=== PATIENT | female | born 2000 | race Caucasian/White ===

== ENCOUNTER 2020-05-18 19:15 | Emergency (ER) | payer MEDICAID, SELFPAY ==
[2020-05-18 19:51] VITALS: BP 121/82; PULSE 110; RESP 20; TEMP 36.3; O2SAT 99; BMI 21.7
--- NOTE | 2020-05-18 22:04 | W.ED.GENADLT ---
HPI - General Adult General: Chief complaint: General Medical Stated complaint: allergic reaction Time Seen by Provider: 05/18/20 21:58 History of Present Illness: HPI narrative: Patient complains of bladder infection start taking Pyridium yesterday developed hives about 3:00 today complaint: Hives Onset (ago): hour(s) Associated symptoms: Deny chest pain, dyspnea, headache(s), nausea, rash or vomiting Review of Systems Const: Denies: fever(s), chills or body aches Eyes: Denies: change in vision or blurry vision ENMT: Denies: throat pain or nasal congestion Card: Denies: chest pain or dyspnea on exertion Resp: Denies: dyspnea, productive cough or non-productive cough GI: Denies: abdominal pain, nausea or vomiting : Reports: urinary frequency Musc: Denies: extremity pain Skin/Breast: Reports: pruritus and other (Hives); Denies: rash Neuro: Denies: headache(s) Psych: Denies: anxiety or depression Matt/Lymph: Denies: easy bruising [facility] Female Reproductive History: Date of last menstrual period: 04/07/20 Physical Exam Const: COMMON NORMALS: no acute distress, average body habitus and patient oriented x3 HENMT: COMMON NORMALS: normocephalic HEAD & SCALP: normal to inspection and normocephalic FACE & SINUS: normal facial exam Eye: COMMON NORMALS: conjunctivae normal GENERAL EYE: appearance normal, both eyes and all related structures CONJUNCTIVA: Yes conjunctivae normal Neck/C-Spine: COMMON NORMALS: no JVD Chest: COMMONS NORMALS: normal inspection of the chest Resp: COMMON NORMALS: normal respiratory effort and clear to auscultation bilaterally AUSCULTATION: clear to auscultation bilaterally Cardio: COMMON NORMALS: no JVD and regular rhythm RATE: tachycardic RHYTHM: regular rhythm GI: COMMON NORMALS: Normal to inspection, nondistended, normoactive bowel sounds present Extremity: COMMON NORMALS: normal to inspection and full ROM Neuro: COMMON NORMALS: patient oriented x3 Skin: OTHER: Has scattered macules resembling hives lower and upper extremities abdomen. Course Vital Signs: Vital signs: Vital Signs Temperature 97.3 F L 05/18/20 19:51 Pulse Rate 110 H 05/18/20 19:51 Respiratory Rate 20 H 05/18/20 19:51 Blood Pressure 121/82 05/18/20 19:51 Pulse Oximetry 99 05/18/20 19:51 Discharge Plan Discharge Patient Disposition: Home Clinical Impression: Urticaria Condition: Stable Prescriptions: New Medrol (Alin) 4 mg tablets,dose pack See Rx Instructions .ROUTE .COMPLEX Qty: 21 RF: 0 Cipro 500 mg tablet 500 mg PO BID Qty: 10 RF: 0 Discharge Orders: Discharge Order (Routine); Ordered 05/18/20 Ordered By: Joon Bajwa Discharge Diet: Usual diet Discharge Activity: Resume usual activity Patient Instructions: Urticaria (ED) Activity Restrictions/Additional Instructions: Follow-up with medical provider as directed. Take medications as prescribed. Return to the ER or your medical provider if condition worsens. Please read and understand discharge instructions. If any questions ask please. Do not take anymore Pyridium follow-up your family medical provider if no significant provement. Coding Level of Care Code ED Ordnance Technician for Hai Cody
[2020-05-18] MEDS: ciprofloxacin 500 mg Tablet PO (22:06)
[2020-05-18] MEDS: predniSONE 20 mg Tablet 60 MG PO (22:07)
[2020-05-18] MEDS: diphenhydrAMINE 50 mg/mL SDV 1mL IM (22:08)
[2020-05-18 22:16] VITALS: PULSE 68; RESP 18; O2SAT 99
== END 2020-05-18 22:16 | disposition home or self-care (01) ==
PROVIDERS: Emergency Provider Nurse Practitioner Family
DX: L50.9 Urticaria, unspecified (principal)
CPT/HCPCS: 12345; 96372; 99282; 99283; J1200; J7512

== ENCOUNTER 2020-07-24 18:37 | Emergency (ER) | payer MEDICAID, SELFPAY ==
--- NOTE | 2020-07-24 18:38 | US_ITS ---
WS: [id number] EARLY OBSTETRICAL ULTRASOUND (<14 WEEKS). HISTORY: Transvaginal bleeding. COMPARISON: None available. Single intrauterine gestational sac is identified. Cardiac activity at 153 BPM. [employer]-rump length lola sures 1.0 cm which corresponds to a gestation of 7w0d. Normal-appearing yolk sac and amnion demonstra komal. No subchorionic hemorrhage. No free fluid. Minimally thick wall cyst in the RIGHT ovary measures 2.8 x 2.7 cm. Normal vascularity within the adj acent ovary. The LEFT ovary is normal size. US/US OB <= 14 weeks fetus [id number] IMPRESSION: 1. Single intrauterine gestation of 7 weeks 0 days and EDC of 03/12/2021. 2. RIGHT corpus luteum cyst.
[2020-07-24 18:41] VITALS: BP 125/81; PULSE 107; RESP 16; TEMP 36.8; O2SAT 100; BMI 23.4
--- NOTE | 2020-07-24 18:53 | ED_ITS ---
HPI - Female Genitourinary General: Chief complaint: Vaginal Bleeding Stated complaint: possible miscarriage Time Seen by Provider: 07/24/20 18:45 History of Present Illness: HPI Narrative: Patient says he is about 13 weeks and arrived via ambulance because she felt dizzy once the bleeding started bleeding she said lasted about 20 minutes it was heavy and red and then bleeding is stopped and she is felt fine since then does have some low back pain presently denies any illness fever chills nausea vomiting. Has had 2 miscarriages in the last 2 years 1 para 3 MD elicited complaint: vaginal bleeding Pertinent past history: prior miscarriages Onset (ago): minute(s) Location of symptoms: vaginal Severity: mild Severity scale (1-10): 2 Consistency: now resolved Vaginal discharge: none Vaginal bleeding: moderate and bright red Exacerbating factors: none Relieving factors: none Associated symptoms: Reports no associated symptoms; Deny abdominal pain, headache(s) or nausea Treatment prior to arrival: none Sexual activity: Yes Patient : Yes Date of Last Menstrual Period: 04/20/20 Review of Systems Const: Denies: fever(s), chills or body aches Eyes: Denies: change in vision or blurry vision ENMT: Denies: throat pain or nasal congestion Card: Denies: chest pain or dyspnea on exertion Resp: Denies: dyspnea, productive cough or non-productive cough GI: Denies: abdominal pain, nausea or vomiting Musc: Denies: extremity pain Skin/Breast: Denies: rash Neuro: Denies: headache(s) Psych: Denies: anxiety or depression Matt/Lymph: Denies: easy bruising [facility] ED Female Reproductive History: Date of last menstrual period: 04/20/20 Physical Exam Const: COMMON NORMALS: no acute distress, average body habitus and patient oriented x3 HENMT: COMMON NORMALS: normocephalic HEAD & SCALP: normal to inspection and normocephalic FACE & SINUS: normal facial exam Eye: COMMON NORMALS: conjunctivae normal GENERAL EYE: appearance normal, both eyes and all related structures CONJUNCTIVA: Yes conjunctivae normal Neck/C-Spine: COMMON NORMALS: no JVD Chest: COMMONS NORMALS: normal inspection of the chest Resp: COMMON NORMALS: normal respiratory effort and clear to auscultation bilaterally AUSCULTATION: clear to auscultation bilaterally Cardio: COMMON NORMALS: no JVD, regular rate and regular rhythm RATE: regular rate RHYTHM: regular rhythm GI: COMMON NORMALS: Normal to inspection, nondistended, normoactive bowel sounds present Extremity: COMMON NORMALS: normal to inspection and full ROM Neuro: COMMON NORMALS: patient oriented x3 Course Vital Signs: Vital signs: Vital Signs Temperature 98.2 F 07/24/20 18:41 Pulse Rate 90 07/24/20 20:32 Respiratory Rate 18 07/24/20 20:32 Blood Pressure 113/66 07/24/20 20:32 Pulse Oximetry 98 07/24/20 20:32 MDM - Female MDM Narrative: Medical decision making narrative: Discussed ultrasound results which show no problems. Discussed what to watch for and what to do if bleeding happens again. Follow-up with the OB doctor first next week Lab Data: Labs: Lab Results 07/24/20 07/24/20 07/24/20 Range/Units 19:25 19:34 19:34 WBC 7.4 (4.5-13.0) 10^3/ uL RBC 5.30 (4.1-5.3) 10^6/u L Hgb 12.8 (11.5-15.3) g/dL Hct 41.0 (37.0-47.0) % MCV 77.4 L (81-99) fL MCH 24.2 L (28.0-34.0) pg MCHC 31.2 (30.0-36.0) g/dL RDW 14.8 (12.1-15.1) % Plt Count 290 (130-400) 10^3/c mm MPV 10.1 (7.4-10.4) fL Neut % (Auto) 62.9 % Lymph % (Auto) 27.5 % [place] % (Auto) 5.0 % Eos % (Auto) 3.8 % Baso % (Auto) 0.7 % Neut # (Auto) 4.62 (1.8-8.0) 10^3/u L Lymph # (Auto) 2.0 (1.5-6.5) 10^3/u L [place] # (Auto) 0.4 (0.2-0.9) 10^3/u L Eos # (Auto) 0.3 (0.0-0.8) 10^3/u L Baso # (Auto) 0.1 (0.0-0.1) 10^3/u L Nucleated RBC % (a uto) 0 % Nucleated RBCs # 0.0 /100WBC Sodium 136 (136-145) mmol/L Potassium 4.1 (3.5-5.1) mmol/L Chloride 101 (98-107) mmol/L Carbon Dioxide 24 (22-29) mmol/L Anion Gap 15.1 (5-19) BUN 10 (6-20) mg/dL Creatinine 0.4 L (0.5-0.9) mg/dL GFR Calculation 205.6 H (90-130) mL/min Glucose 88 (65-115) mg/dL Calculated Osmolal ity 280 L (285-295) mOsm/k g Calcium 9.8 (8.5-10.5) mg/dL Total Bilirubin 0.2 (0.15-1.2) mg/dL AST 17 (0-32) U/L ALT 15 (0-33) U/L Alkaline Phosphata se 62 (35-105) IU/L Total Protein 6.7 (6.6-8.7) g/dL Albumin 4.3 (3.5-5.2) g/dL Globulin 2.4 (1.3-4.6) g/dL Lipase 26 (13-60) U/L Ser , [place]nt 16306.00 mIU/mL Urine Color Yellow (Yellow) Urine Appearance Clear (CLEAR) Urine pH 7.0 (5-7) Ur Specific Gravit y 1.015 (1.005-1.030) Urine Protein Neg (Negative) Urine Glucose (UA) Norm (Normal) Urine Ketones Negative (Negative) Urine Blood Neg (Negative) Urine Nitrate Negative (Negative) Urine Bilirubin Neg (Negative) Urine Urobilinogen Norm (Negative) mg/dL Ur Leukocyte Lavinia ase Negative (Negative) Discharge Plan Discharge Patient Disposition: Home Clinical Impression: Threatened Condition: Stable Prescriptions: No Action EpiPen 0.3 mg/0.3 mL Auto-Injector See Rx Instructions .ROUTE .COMPLEX RF: 0 28 mg iron- 800 mcg Tablet 1 tab PO DAILY RF: 0 Discharge Orders: Discharge Order (Routine); Ordered 07/24/20 Ordered By: Joon Bajwa Discharge Diet: Usual diet Discharge Activity: Resume usual activity Patient Instructions: Threatened Miscarriage (ED) Activity Restrictions/Additional Instructions: Drink plenty of fluids follow-up your OB doctor first next week continue present vitamins. Discharge Date/Time: 07/24/20 20:34 Coding Level of Care Code ED Nut Packer 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
[2020-07-24 18:59] VITALS: BP 127/80; PULSE 99; RESP 18; O2SAT 100
[2020-07-24 19:28] LABS: Add Urine Microscopic? NO
[2020-07-24 20:00] LABS: Bilirubin Urine Neg (Negative); Blood Urine Neg (Negative); Glucose Urine UA Norm (Normal); Ketones Urine Negative (Negative); Leukocyte Esterase Urine Negative (Negative); Nitrate Urine Negative (Negative); Protein Urine Neg (Negative); Specific Gravity, Urine 1.015 (1.005-1.030); Urine Appearance Clear (CLEAR); Urine Color Yellow (Yellow); Urobilinogen Urine Norm (Negative)
[2020-07-24 20:09] LABS: Basophils # 0.1 10^3/uL (0.0-0.1); Basophils % 0.7 %; Eosinophils # 0.3 10^3/uL (0.0-0.8); Eosinophils % 3.8 %; Hemoglobin 12.8 g/dL (11.5-15.3); Lymphocytes % 27.5 %; Mean Corpuscular HGB Conc 31.2 g/dL (30.0-36.0); Mean Corpuscular Hemoglobin 24.2 pg (28.0-34.0); Mean Corpuscular Volume 77.4 fL (81-99); Mean Platelet Volume 10.1 fL (7.4-10.4); Monocytes # 0.4 10^3/uL (0.2-0.9); Neutrophils # 4.62 10^3/uL (1.8-8.0); Neutrophils % 62.9 %; Nucleated Red Blood Cells % 0 %; Platelet Count 290 10^3/cmm (130-400); Red Cell Distribution Width 14.8 % (12.1-15.1); White Blood Count 7.4 10^3/uL (4.5-13.0)
[2020-07-24 20:24] VITALS: BP 106/71; PULSE 100; RESP 18; O2SAT 98
[2020-07-24 20:32] VITALS: BP 113/66; PULSE 90; RESP 18; O2SAT 98
[2020-07-24 20:34] LABS: Alanine Aminotransferase 15 U/L (0-33); Albumin Level 4.3 g/dL (3.5-5.2); Alkaline Phosphatase 62 IU/L (35-105); Aspartate Amino Transferase 17 U/L (0-32); Blood Urea Nitrogen 10 mg/dL (6-20); Calcium 9.8 mg/dL (8.5-10.5); Carbon Dioxide 24 mmol/L (22-29); Chloride 101 mmol/L (98-107); Globulin 2.4 g/dL (1.3-4.6); Glomerular Filtration Rate 205.6 mL/min (90-130); Glucose 88 mg/dL (65-115); Lipase 26 U/L (13-60); Osmolality Calculated 280 mOsm/kg (285-295); Sodium 136 mmol/L (136-145); Total Bilirubin 0.2 mg/dL (0.15-1.2); Total Protein 6.7 g/dL (6.6-8.7)
[2020-07-24 20:38] LABS: Anion Gap 15.1 (5-19); Potassium 4.1 mmol/L (3.5-5.1)
== END 2020-07-24 20:34 | disposition home or self-care (01) ==
PROVIDERS: Emergency Provider Nurse Practitioner Family
DX: O20.0 Threatened abortion (principal); Z3A.13 13 weeks gestation of pregnancy
CPT/HCPCS: 12345; 76801; 80053; 81003; 83690; 84702; 85025; 99282; 99283

== ENCOUNTER 2020-10-17 19:06 | Outpatient (CLI) | payer MEDICAID, SELFPAY ==
[2020-10-17] VITALS (15 sets, daily range): BP systolic 114; BP diastolic 59; PULSE 83–125; RESP 16; TEMP 35.9; O2SAT 91–100; BMI 26.0
[2020-10-17] MEDS: terbutaline 1 mg/mL INJ 0.25 MG SUBCUT ×2 (20:10→21:17)
[2020-10-17] MEDS: acetaminophen 500 mg Tablet 1000 MG PO (21:17)
== END 2020-10-17 21:34 | disposition home or self-care (01) ==
LOC: OPOB 19:06 → OBGYN 19:18
PROVIDERS: Visit Provider Family Medicine
DX: O36.8190 Decreased fetal movements, unspecified trimester, not applicable or unspecified (principal); Z3A.00 Weeks of gestation of pregnancy not specified
CPT/HCPCS: 96372; 99211; J3105

== ENCOUNTER 2020-10-18 11:41 | Outpatient (CLI) | payer MEDICAID, SELFPAY ==
[2020-10-18] VITALS (18 sets, daily range): BP systolic 106–137; BP diastolic 58–73; PULSE 95–148; RESP 17; TEMP 36.7; O2SAT 94–100; BMI 25.9
--- NOTE | 2020-10-18 12:17 | USR_ITS ---
PROCEDURE INFORMATION: Exam: US , Transvaginal Exam date and time: 10/18/2020 12:35 PM Age: 19 years old Clinical indication: Lmp or gestational age (in weeks): 20 wks 2 days; Other: Contractions; TECHNIQUE: Imaging protocol: Real-time transvaginal obstetrical ultrasound of the maternal pelvis and a first trimester with image documentation. Transvaginal imaging was used for better evaluation of the fetus, adnexa, and/or cervix. COMPARISON: US OB >= 14 weeks fetus [id number] 10/14/2020 11:43 AM FINDINGS: Gestation: There is a single intrauterine viable . heart rate: Heart rate equals 153 BPM. Placenta: There is a low lying anterior grade 1 placenta but no evidence of placenta previa. Amniotic fluid: Amniotic fluid volume is normal. MATERNAL: Cervix: The cervix is 4.64 cm in length. US/US OB transvaginal [id number] IMPRESSION: 1. Single viable intrauterine . 2. Low-lying anterior placenta. 3. The cervical length equals 4.64 cm.
[2020-10-18] MEDS: terbutaline 1 mg/mL INJ 0.25 MG SUBCUT (12:28)
[2020-10-18] MEDS: lactated ringers 1,000 ML 999 ML IV (12:47)
[2020-10-18] MEDS: NIFEdipine ER (24 hr) 30 mg Tablet PO (13:36)
== END 2020-10-18 13:43 | disposition home or self-care (01) ==
LOC: OPOB 11:45 → OBGYN 11:45
PROVIDERS: Visit Provider Family Medicine
DX: O26.899 Other specified pregnancy related conditions, unspecified trimester (principal); Z3A.00 Weeks of gestation of pregnancy not specified; R10.9 Unspecified abdominal pain
CPT/HCPCS: 76817; 96361; 96372; 99211; J3105

== ENCOUNTER 2020-12-14 18:35 | Outpatient (CLI) | payer MEDICAID, SELFPAY ==
[2020-12-14 18:47] VITALS: BP 137/85; PULSE 117
[2020-12-14 19:00] VITALS: BMI 29.7
[2020-12-14 19:05] VITALS: BP 123/72; PULSE 116
[2020-12-14 19:18] VITALS: RESP 18
[2020-12-14 19:20] VITALS: BP 129/74; PULSE 111
[2020-12-14] MEDS: terbutaline 1 mg/mL INJ 0.25 MG SUBCUT ×2 (19:28→20:04)
[2020-12-14] MEDS: NIFEdipine ER (24 hr) 30 mg Tablet PO (20:04)
[2020-12-14 20:42] VITALS: BP 118/77; PULSE 131; TEMP 36.3
[2020-12-14 20:45] VITALS: BP 118/77; PULSE 131; TEMP 36.3
== END 2020-12-14 20:45 | disposition home or self-care (01) ==
LOC: OPOB 18:36 → OBGYN 18:37
PROVIDERS: Visit Provider Family Medicine
DX: O26.899 Other specified pregnancy related conditions, unspecified trimester (principal); Z3A.00 Weeks of gestation of pregnancy not specified; R10.9 Unspecified abdominal pain
CPT/HCPCS: 59025; 96372; 99211; J3105

== ENCOUNTER 2020-12-15 12:20 | Outpatient (CLI) | payer MEDICAID, SELFPAY ==
[2020-12-15 12:45] VITALS: BMI 30.4
[2020-12-15] MEDS: NIFEdipine ER (24 hr) 30 mg Tablet PO (13:04)
== END 2020-12-15 13:05 | disposition home or self-care (01) ==
LOC: OPOB 12:28 → OBGYN 14:41
PROVIDERS: Visit Provider Family Medicine
DX: O26.899 Other specified pregnancy related conditions, unspecified trimester (principal); Z3A.00 Weeks of gestation of pregnancy not specified; R10.9 Unspecified abdominal pain
CPT/HCPCS: 99211

== ENCOUNTER 2021-01-07 17:50 | Outpatient (CLI) | payer MEDICAID, SELFPAY ==
[2021-01-07] VITALS (17 sets, daily range): BP systolic 134–148; BP diastolic 71–90; PULSE 86–132; RESP 16; O2SAT 97–100; BMI 28.9
[2021-01-07] MEDS: terbutaline 1 mg/mL INJ 0.25 MG SUBCUT (18:32)
--- NOTE | 2021-01-07 19:10 | PC.NURSE ---
Patient denies any current pain but states that the last contraction was a big one When asked to quantify the pain of the last contraction on a 1-10 pain rating scale patient responds, it was probably a 7.
== END 2021-01-07 19:33 | disposition home or self-care (01) ==
LOC: OPOB 17:53 → OBGYN 19:19
PROVIDERS: Visit Provider Family Medicine
DX: O26.899 Other specified pregnancy related conditions, unspecified trimester (principal); Z3A.00 Weeks of gestation of pregnancy not specified; Z91.81 History of falling
CPT/HCPCS: 59025; 96372; 99211; J3105

== ENCOUNTER 2021-01-20 18:16 | Outpatient (CLI) | payer MEDICAID, SELFPAY ==
[2021-01-20 18:32] VITALS: RESP 18
[2021-01-20 18:33] VITALS: BP 136/99; PULSE 121
[2021-01-20 18:48] VITALS: BP 132/90; PULSE 121
[2021-01-20 18:56] VITALS: TEMP 36.3
[2021-01-20 19:03] VITALS: BP 123/71; PULSE 101
[2021-01-20 19:14] VITALS: BP 123/71; PULSE 101; RESP 16; TEMP 36.3
[2021-01-20 19:22] VITALS: BMI 31.8
--- NOTE | 2021-02-12 15:12 | PC.NURSE ---
Outpatient in a bed order placed for patient visit.
== END 2021-01-20 19:37 | disposition home or self-care (01) ==
LOC: OPOB 18:19 → OBGYN 18:20
PROVIDERS: Visit Provider Family Medicine
DX: O26.899 Other specified pregnancy related conditions, unspecified trimester (principal); Z3A.00 Weeks of gestation of pregnancy not specified; R10.9 Unspecified abdominal pain
CPT/HCPCS: 59025; 83986; 99211

== ENCOUNTER 2021-01-31 03:16 | Emergency (ER) | payer MEDICAID, SELFPAY ==
[2021-01-31 03:19] VITALS: BP 130/89; PULSE 103; RESP 18; TEMP 36.6; O2SAT 100; BMI 31.6
--- NOTE | 2021-01-31 03:59 | W.ED.URI ---
HPI - URI/Sore Throat General: Chief Complaint: Upper Respiratory Infection Stated Complaint: chest pressure Time Seen by Provider: 01/31/21 03:31 History of Present Illness: HPI Narrative: 20-year-old female with a history of cough, congestion, chest tightness for the last 3 days. No history of fever. No known exposure to COVID-19 or any other illness. She is a [id number] mom. She is 37 weeks . No loss of fluid or bleeding. She is still feeling her baby move. She notes that her symptoms started with a sore throat 3 days ago MD elicited complaint: cough, sore throat, rhinorrhea and nasal congestion Pertinent past history: other Onset (ago): day(s) (3) Consistency: intermittent and progressively worsening Severity: moderate Description of mucous: clear Able to tolerate fluids by mouth: Yes Exacerbating factors: nothing Relieving factors: nothing Associated symptoms: Reports chest pain, congestion, cough, nasal congestion, nausea and rhinorrhea; Deny abdominal pain, chills, diarrhea, fever(s), headache(s), myalgias, rash or vomiting Review of Systems Const: Denies: fever(s) or chills ENMT: Reports: nasal congestion Card: Reports: chest pain GI: Reports: nausea; Denies: abdominal pain, vomiting or diarrhea Neuro: Denies: headache(s) [facility] Female Reproductive History: Date of last menstrual period: 04/20/20 Physical Exam Const: GENERAL APPEARANCE: well developed ORIENTATION/CONSCIOUSNESS: Yes oriented to person, Yes oriented to place and Yes oriented to time HENMT: COMMON NORMALS: normocephalic, external ears normal and Normal external nose present HEAD & SCALP: normocephalic; no scalp tenderness FACE & SINUS: normal facial exam NOSE: Normal external nose present and Nasal discharge present clear EXTERNAL EAR: Yes external ears normal MOUTH: tongue normal TEETH & GINGIVA: no abnormal tooth and associated gingiva THROAT: posterior oropharynx normal; no peritonsillar mass Eye: COMMON NORMALS: Equal, round and reactive pupils present, EOMs intact bilaterally and conjunctivae normal EYELID: eyelids normal CONJUNCTIVA: Yes conjunctivae normal PUPIL: Yes Equal, round and reactive pupils present Neck/C-Spine: COMMON NORMALS: full ROM GENERAL: No tracheal deviation CERVICAL SPINE: Yes normal cervical lordosis and No Cervical spine tenderness Chest: COMMONS NORMALS: normal inspection of the chest CHEST: No tenderness Resp: COMMON NORMALS: clear to auscultation bilaterally EFFORT & INSPECTION: No tachypneic, No respiratory distress, No retractions, No uses accessory muscles and No tracheal deviation AUSCULTATION: clear to auscultation bilaterally, no rhonchi, no wheezes, lung sounds not diminished and other (Not wheezing but mildly tight on right) Cardio: COMMON NORMALS: regular rate and regular rhythm RATE: regular rate RHYTHM: regular rhythm HEART SOUNDS: no murmurs PERIPHERAL PULSES: radial pulses present GI: INSPECTION: No abdominal distension AUSCULTATION: No Hyperactive bowel sounds present and No Hypoactive bowel sounds present PALPATION: No Guarding due to palpation present (GI) and No Rigid due to palpation PERCUSSION: no dullness to percussion and no tympanic to percussion Neuro: SENSORIUM/ORIENTATION: Yes oriented to person, Yes oriented to place and Yes oriented to time Psych: COMMON NORMALS: mental status grossly normal Skin: COMMON NORMALS: no rashes or lesions noted GENERAL SKIN EXAM: no rashes or lesions noted Course Vital Signs: Vital signs: Vital Signs Temperature 97.8 F 01/31/21 03:19 Pulse Rate 103 H 01/31/21 03:19 Respiratory Rate 18 01/31/21 03:19 Blood Pressure 130/89 01/31/21 03:19 Pulse Oximetry 100 01/31/21 03:19 MDM - URI/Sore Throat MDM Narrative: Medical decision making narrative: 20-year-old female at 37 weeks. She is having some upper respiratory symptoms. She also is having some chest pressure with her cough and pain with deep breaths. She has some mild vesicular sounds on her right lung base on auscultation. She will be placed on antibiotics given her late , given dexamethasone here, one-time dose, and put on inhaler Discharge Plan Discharge Patient Disposition: Home Clinical Impression: Bronchitis Condition: Stable Prescriptions: New azithromycin 250 mg tablet 250 mg PO DAILY 5 Days Qty: 6 RF: 0 No Action epinephrine [EpiPen] 0.3 mg/0.3 mL Auto-Injector See Rx Instructions .ROUTE .COMPLEX RF: 0 PNV cmb#[id number]-ferrous fumarate-FA [] 28 mg iron- 800 mcg Tablet 1 tab PO DAILY RF: 0 Discharge Orders: Discharge ED (Routine); Ordered 01/31/21 Ordered By: Case Duval Referrals: Flaca Ruelas MD [Physician] - 1-3 days Discharge Diet: Advance as tolerated Discharge Activity: Increase activity as tolerated Patient Instructions: Acute Bronchitis (ED) Activity Restrictions/Additional Instructions: Return for fever greater than 100, shortness of breath or worsening chest pain despite treatment, decrease in movement, any other concerning symptoms. Coding Level of Care Code ED Plating Technician for Hai Cody
[2021-01-31] MEDS: dexamethasone 4 mg Tablet 8 MG PO (04:05)
[2021-01-31] MEDS: azithromycin 250 mg Tablet 500 MG PO (04:05)
[2021-01-31 04:09] VITALS: PULSE 76; RESP 18; O2SAT 98
[2021-01-31] MEDS: albuterol 8 gm MDI 2 PUFF INHALATION (04:09)
[2021-01-31 04:13] VITALS: PULSE 77; RESP 18; O2SAT 97
[2021-01-31 04:25] VITALS: BP 130/89; PULSE 103; RESP 18; O2SAT 98
== END 2021-01-31 04:00 | disposition home or self-care (01) ==
PROVIDERS: Emergency Provider Emergency Medicine
DX: J40 Bronchitis, not specified as acute or chronic (principal)
CPT/HCPCS: 94640; 99283; J3535; J8540; Q0144

== ENCOUNTER 2021-01-31 13:10 | Outpatient (CLI) | payer MEDICAID, SELFPAY ==
[2021-01-31] VITALS (8 sets, daily range): BP systolic 121–123; BP diastolic 82–85; PULSE 129–148; RESP 18; TEMP 36.2; O2SAT 97–98; BMI 27.6
== END 2021-01-31 14:01 | disposition home or self-care (01) ==
LOC: OPOB 13:15 → OBGYN 13:16
PROVIDERS: PCP Family Medicine; Visit Provider Family Medicine
DX: O36.8190 Decreased fetal movements, unspecified trimester, not applicable or unspecified (principal); Z3A.00 Weeks of gestation of pregnancy not specified
CPT/HCPCS: 59025; 99211

== ENCOUNTER 2021-03-03 05:12 | Inpatient (IN) | payer MEDICAID, SELFPAY ==
[2021-03-03] VITALS (20 sets, daily range): BP systolic 109–161; BP diastolic 70–88; PULSE 67–111; RESP 16–18; TEMP 36.1–37.1; O2SAT 98; BMI 29.6
[2021-03-03 05:44] LABS: Basophils # 0.1 10^3/uL (0.0-0.1); Basophils % 0.9 %; Eosinophils # 0.2 10^3/uL (0.0-0.8); Hematocrit 35.7 % (37.0-47.0); Hemoglobin 11.2 g/dL (11.5-15.3); Lymphocytes # 2.6 10^3/uL (1.5-6.5); Lymphocytes % 40.4 %; Mean Corpuscular HGB Conc 31.4 g/dL (30.0-36.0); Mean Corpuscular Hemoglobin 23.2 pg (28.0-34.0); Mean Corpuscular Volume 73.9 fL (81-99); Mean Platelet Volume 11.6 fL (7.4-10.4); Monocytes # 0.6 10^3/uL (0.2-0.9); Monocytes % 9.6 %; Neutrophils # 2.93 10^3/uL (1.8-8.0); Neutrophils % 45.9 %; Nucleated Red Blood Cells % 0 %; Platelet Count 233 10^3/cmm (130-400); Red Blood Count 4.83 10^6/uL (4.1-5.3); Red Cell Distribution Width 15.4 % (12.1-15.1); White Blood Count 6.4 10^3/uL (4.5-13.0)
[2021-03-03] MEDS: citric acid-sodium citrate 30 mL UDC PO (06:57)
[2021-03-03] MEDS: metoclopramide 5 mg/mL SDV 2 mL 10 MG IVP (06:57)
[2021-03-03] MEDS: famotidine 20 mg/2 mL INJ IVP (06:58)
--- NOTE | 2021-03-03 08:57 | PM.OPHPUD ---
Labor & Delivery H&P Update Date of Procedure: March 03, 2021 Date H&P Performed: 02/26/21 Admission Diagnosis: Preop diagnosis: previous Related Problem List Diagnoses (1) with 39 completed weeks gestation:
--- NOTE | 2021-03-03 08:59 | P.OP_ITS ---
Operative Report Date of procedure: March 03, 2021 Pre-op Diagnosis: previous Post-op diagnosis: same Procedure Done: Repeat low transverse section Via Pfannenstiel skin incision Specimens removed/disposition: Vertex male infant weight 8 pounds 4 ounces, 3750 g Surgeon: Flaca Ruelas Anesthesia: Other (Spinal) Estimated blood loss (mL): 400 IV fluids (mL): 1,100 Urine output (mL): 200 Complications: None Condition: stable Disposition: floor Procedure: After informed consent the patient was taken to the OR where she was given spinal anesthesia. She was prepped and draped in normal sterile fashion in dorsal supine position with a left lateral tilt. After adequate spinal anesthesia was verified a Pfannenstiel skin incision was made through the previous scar and carried through to the underlying layer of fascia sharply. The fascial incision was extended laterally using the Mayos. There was a rather large diastases recti with midline fatty tissue. The fascia was grasped with [place] clamps and the underlying rectus muscles were dissected off taking care to avoid injury to the underlying tissue. The peritoneum was entered bluntly using a hemostat. The incision was manually stretched. The bladder blade was then inserted and the vesicouterine peritoneum was identified and entered sharply using the Metzenbaums. The bladder flap was then created digitally. The bladder blade was then reinserted. Uterine incision was made in a transverse fashion in the lower uterine segment. Amniotic rupture of membranes was performed using an Allis clamp. There was clear fluid noted. The infant was vertex and was delivered atraumatically with bulb suction of the mouth and nares after delivery. The cord was clamped and cut and the infant was handed to the waiting pediatric nurse. Cord blood was obtained. The placenta was delivered using fundal pressure. The uterus was t hen exteriorized from the abdomen and a dry sponge was used to clear the uterus of clots and debris. The uterine incision was then repaired using 0 chromic in a running locked fashion. A second layer of the same suture was used in an imbricating manner. There was excellent hemostasis. The uterus was then returned to the abdomen. Irrigation was used to clear the gutters of clots and debris and the uterine incision was reinspected for hemostasis. The peritoneum was reapproximated using 4-0 Vicryl in a running fashion. Due to the large diastases recti I attempted to reapproximate the rectus muscles gently using 4-0 Vicryl in a running fashion. The subfascial tissue was inspected for hemostasis and the fascia was then reapproximated using 0 Vicryl in a running fashion. The subcutaneous tissue was then irrigated. Any small bleeders were coagulated using the Bovie. The subcutaneous tissue was reapproximated using 4-0 Vicryl in a running fashion. The skin was then reapproximated using 4-0 Vicryl on a Denys needle. Steri-Strips and a pressure bandage were applied and patient went to recovery in good condition. Sponge instrument and needle counts were correct
--- NOTE | 2021-03-03 09:35 | PC.NURSE ---
Patient moved from OR to room via bed assisted by nurse.
--- NOTE | 2021-03-03 10:54 | PC.NURSE ---
ERROR: VS CHARTED ELECTRONICALY BETWEEN THE TIMES [id number] ARE ANOTHER PATIENTS MEDICAL INFORMATION AND ARE NOT THIS PATIENTS VS. VS ENTERED BY POLI GARCIA BETWEEN THESE TIMES ARE THE ACCURATE INFORMATION FOR THIS PATIENT.
[2021-03-03] MEDS: ketorolac 30 mg/mL INJ IVP ×2 (13:18→20:52)
[2021-03-03] MEDS: docusate sodium 100 mg Capsule PO (18:24)
[2021-03-03] MEDS: ondansetron 2 mg/ML SDV 2 mL 4 MG IVP (18:25)
[2021-03-03 21:09] LABS: Hematocrit 30.9 % (37.0-47.0); Hemoglobin 9.7 g/dL (11.5-15.3); Mean Corpuscular HGB Conc 31.4 g/dL (30.0-36.0); Mean Corpuscular Hemoglobin 23.6 pg (28.0-34.0); Mean Corpuscular Volume 75.2 fL (81-99); Mean Platelet Volume 11.4 fL (7.4-10.4); Platelet Count 187 10^3/cmm (130-400); Red Blood Count 4.11 10^6/uL (4.1-5.3); Red Cell Distribution Width 15.4 % (12.1-15.1); White Blood Count 7.4 10^3/uL (4.5-13.0)
[2021-03-04 02:35] VITALS: BP 124/85; PULSE 89; TEMP 36.7
[2021-03-04 04:00] VITALS: BP 124/83; PULSE 89; RESP 17; TEMP 37.1
[2021-03-04] MEDS: docusate sodium 100 mg Capsule PO ×2 (08:46→18:05)
[2021-03-04] MEDS: prenatal vitamin Capsule 1 CAP PO (08:46)
[2021-03-04] MEDS: escitalopram 10 mg Tablet PO (08:46)
[2021-03-04 11:01] VITALS: BP 124/79; PULSE 98; RESP 14; TEMP 37.1; O2SAT 98
[2021-03-04] MEDS: ibuprofen 800 mg tablet PO (12:49)
[2021-03-04 16:40] VITALS: BP 121/78; PULSE 90; RESP 16; TEMP 36.8; O2SAT 98
--- NOTE | 2021-03-04 18:37 | PM.DCS ---
Discharge Providers Date of Admission: 03/03/21 05:12 Date of Discharge: March 04, 2021 Attending Provider at Admission: Flaca Ruelas MD Attending Provider at Discharge: Flaca Ruelas MD Primary Care Provider: Flaca Ruelas MD Diagnoses at Discharge Discharge Diagnosis (1) with 39 completed weeks gestation: Status: Acute Reason for Visit Reason for Visit: Hospital Course Hospital Course This is a 20-year-old G2 now P2 who was admitted for a scheduled repeat section. She did well postoperatively and on postop day #1 she was ambulating, tolerating a regular diet, had good pain control and minimal vaginal bleeding. She was comfortable with discharge home. Physical Exam Const: COMMON NORMALS: no acute distress HENMT: COMMON NORMALS: normocephalic and atraumatic HEAD & SCALP: normocephalic and atraumatic FACE & SINUS: normal facial exam Chest: COMMONS NORMALS: normal inspection of the chest Resp: COMMON NORMALS: normal respiratory effort and clear to auscultation bilaterally AUSCULTATION: clear to auscultation bilaterally Cardio: COMMON NORMALS: regular rate and regular rhythm RATE: regular rate RHYTHM: regular rhythm GI: COMMON NORMALS: Soft to palpation AUSCULTATION: Yes normoactive bowel sounds PALPATION: Yes Soft to palpation and Yes Tenderness to palpation present (GI) (Appropriate minimal post operative) Extremity: GENERAL: No calf tenderness and Yes edema Urinary Catheter Management^: [place]: Cath Placed During This Visit: yes, but has since been removed by the nurse Reason for Continuing Indwelling Catheter: Decision to DC Catheter Urinary Catheter Date of Insertion: 03/03/21 Urinary Catheter Time of Insertion: 07:40 Date Urinary Catheter Removed: 03/03/21 Time Urinary Catheter Discontinued: 18:30 Discharge Data Data Completed and Pending: Labs from last 24 hours 03/03/21 21:00 WBC 7.4 RBC 4.11 Hgb 9.7 L Hct 30.9 L MCV 75.2 L MCH 23.6 L MCHC 31.4 RDW 15.4 H Plt Count 187 MPV 11.4 H Vitals: Last Vital Signs Temp 98.2 F 03/04/21 16:40 Pulse 90 03/04/21 16:40 Resp 16 03/04/21 16:40 BP 121/78 03/04/21 16:40 Pulse Ox 98 03/04/21 16:40 Discharge Plan Discharge Patient Disposition: Home Condition: Stable Prescriptions: New hydrocodone-acetaminophen 5-325 mg Tablet 1 - 2 tab PO Q4H PRN (Reason: Abdominal Pain) Qty: 15 RF: 0 docusate sodium [DOK] 100 mg Capsule 100 mg PO BID Qty: 60 RF: 0 Continued epinephrine [EpiPen] 0.3 mg/0.3 mL Auto-Injector See Rx Instructions .ROUTE .COMPLEX RF: 0 PNV cmb#95-ferrous fumarate-FA [] 28 mg iron- 800 mcg Tablet 1 tab PO DAILY RF: 0 Lexapro 10 mg Tablet 10 mg PO DAILY RF: 0 Discharge Orders: Discharge Order (Routine); Ordered 03/04/21 Ordered By: Flaca Ruelas Referrals: Flaca Ruelas MD [Primary Care Provider] - 1-3 days (Tuesday) Discharge Diet: Usual diet Discharge Activity: Limit activity as instructed Patient Instructions: Vitamins (By mouth), Pre-eclampsia and Eclampsia (DC), Bleeding (DC), OB - Rima/Suraj, OB Discharge Report, OB Food/Drug Interaction Guide, Opioid Safety, OB Proud Parent Packet Discharge Attestations Time Spent in Discharge Care*: less than 30 min Quality Metrics Clinical Quality Measures During this hospital stay, did patient experience: None Coding Level of Care Code Acute Chg FW DC note Diagnoses with 39 completed weeks gestation [id number].[id number]
[2021-03-04 19:34] VITALS: BP 112/76; PULSE 87; RESP 16; TEMP 37.1; O2SAT 97
[2021-03-04 20:00] VITALS: BP 112/76; PULSE 87; RESP 16; TEMP 37.1; O2SAT 97
== END 2021-03-04 20:15 | disposition home or self-care (01) | DRG 788 ==
LOC: OBGYN 08:27 → OPOB 08:28 → OBGYN 08:29
PROVIDERS: Admitting Provider Family Medicine; PCP Family Medicine; Visit Provider Family Medicine
DX: O34.211 Maternal care for low transverse scar from previous cesarean delivery (principal); Z3A.39 39 weeks gestation of pregnancy; Z37.0 Single live birth
CPT/HCPCS: 36415; 51702; 59025; 59409; 85025; 85027; 96374; 96375; 98960; J0690; J1885; J2274; J2370; J2405; J2765; J3490

== ENCOUNTER 2021-04-06 16:05 | Emergency (ER) | payer OTHER, MEDICAID, SELFPAY ==
[2021-04-06 16:44] VITALS: BP 119/66; PULSE 80; RESP 16; TEMP 37; O2SAT 99; BMI 24.4
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
[2021-04-06 20:06] VITALS: BP 109/70; PULSE 85; RESP 16; TEMP 36.6; O2SAT 98
[2021-04-06] MEDS: acetaminophen 500 mg Tablet 1000 MG PO (20:11)
[2021-04-06 21:25] VITALS: BP 109/69; PULSE 72; RESP 18; TEMP 36.6; O2SAT 98
== END 2021-04-06 21:33 | disposition home or self-care (01) ==
PROVIDERS: Emergency Provider Physician Assistant; PCP Family Medicine
DX: S06.0X1A Concussion with loss of consciousness of 30 minutes or less, initial encounter (principal); V49.40XA Driver injured in collision with unspecified motor vehicles in traffic accident, initial encounter
CPT/HCPCS: 70450; 72125; 99283

== ENCOUNTER 2021-06-06 05:41 | Emergency (ER) | payer MEDICAID, SELFPAY ==
[2021-06-06 05:50] VITALS: BP 124/88; PULSE 160; RESP 18; TEMP 37.9; O2SAT 97; BMI 25.4
--- NOTE | 2021-06-06 05:58 | W.ED.COVID ---
HPI - COVID General: Chief Complaint: Fever Stated Complaint: SOB, FEVER, COUGH Time Seen by Provider: 06/06/21 05:56 Triage information: Has fever, cough or shortness of breath. No known COVID + exposure last 14 days History of Present Illness: HPI Narrative: 20-year-old female presents emergency complaining of cough and fever for the last 2 days. Patient complains of severe myalgias and headache. Cough is been nonproductive. She reports a T-max of nearly 105 overnight. Symptoms got significantly worse through the evening. MD complaint: has COVID symptoms Prior covid testing: no COVID 19 common symptoms: positive fever(s), chills, cough and non-productive cough; negative throat pain, nasal congestion, nausea, vomiting or diarrhea COVID 19 other sytmptoms: negative chest pain or requiring oxygen Onset (ago): hour(s) Severity: mild Treatment prior to arrival: none COVID Results: No Data to Display Review of Systems Const: Reports: fever(s) and chills ENMT: Denies: throat pain, ear or mastoid pain, nasal discharge or nasal congestion Card: Denies: chest pain, edema, dyspnea on exertion or orthopnea Resp: Reports: non-productive cough GI: Denies: abdominal pain, nausea, vomiting, hematemesis, coffee ground emesis, diarrhea, constipation, bloating, hematochezia or melena : Denies: flank pain, difficulty voiding, dysuria, urinary frequency or urinary urgency Skin/Breast: Denies: rash or pruritus [facility] Female Reproductive History: Date of last menstrual period: 05/30/21 Physical Exam Const: COMMON NORMALS: no acute distress GENERAL APPEARANCE: cooperative and comfortable ORIENTATION/CONSCIOUSNESS: Yes awake, Yes oriented to person, Yes oriented to place and Yes oriented to time HENMT: COMMON NORMALS: normocephalic, atraumatic and hearing grossly normal bilaterally HEAD & SCALP: normocephalic and atraumatic Resp: AUSCULTATION: wheezes Cardio: COMMON NORMALS: regular rate, regular rhythm and No murmurs present (Cardio) RATE: regular rate RHYTHM: regular rhythm GI: COMMON NORMALS: Soft to palpation and No hepatosplenomegaly present AUSCULTATION: Yes normoactive bowel sounds PALPATION: Yes Soft to palpation, No Tenderness to palpation present (GI), No Guarding due to palpation present (GI) and Yes No hepatosplenomegaly present Extremity: COMMON NORMALS: normal to inspection, capillary refill normal, no clubbing, cyanosis or edema, no calf tenderness and no pedal edema Neuro: SENSORIUM/ORIENTATION: Yes oriented to person, Yes oriented to place and Yes oriented to time Skin: COMMON NORMALS: no rashes or lesions noted GENERAL SKIN EXAM: no rashes or lesions noted Course Vital Signs: Vital signs: Vital Signs Temperature 100.3 F H 06/06/21 05:50 Pulse Rate 122 H 06/06/21 06:16 Respiratory Rate 22 H 06/06/21 06:16 Blood Pressure 124/88 06/06/21 06:16 Pulse Oximetry 97 06/06/21 06:16 MDM - COVID MDM Narrative: Medical decision making narrative: Imaging reviewed on the chart. Chest x-ray is unremarkable no evidence of acute pneumonia no Covid pneumonitis changes. Her presenting symptoms are most consistent with Covid. PCR is pending. Recommend self-isolation until resulted. Albuterol to use as needed and follow-up if has any worsening or change. Patient does have a mild self-limited epistaxis after the Covid swab. COVID Results: No Data to Display Discharge Plan Discharge Patient Disposition: Home Clinical Impression: Clinical diagnosis of COVID-19 Condition: Stable Prescriptions: New albuterol sulfate 90 mcg/actuation HFA aerosol inhaler 2 inh INHALATION Q4H PRN (Reason: shortness of breath or wheezing) Qty: 18 RF: 0 No Action epinephrine [EpiPen] 0.3 mg/0.3 mL Auto-Injector See Rx Instructions .ROUTE .COMPLEX RF: 0 PNV cmb#95-ferrous fumarate-FA [] 28 mg iron- 800 mcg Tablet 1 tab PO DAILY RF: 0 escitalopram oxalate [Lexapro] 10 mg Tablet 10 mg PO DAILY RF: 0 Discharge Orders: Discharge ED (Routine); Ordered 06/06/21 Ordered By: Ricardo Juárez Referrals: Flaca Ruelas MD [Primary Care Provider] - Discharge Diet: Usual diet Discharge Activity: Limit activity as instructed Patient Instructions: Opioid Safety Activity Restrictions/Additional Instructions: Recommend self quarantine until Covid test result. Clinically presenting symptoms are highly suspicious for Covid. Use the albuterol as needed. If symptoms worsens or change return. Coding Level of Care Code ED Medical Registrar for Chg Fwd Exam Detailed
--- NOTE | 2021-06-06 06:01 | XRR_ITS ---
PROCEDURE INFORMATION: Exam: XR Chest Exam date and time: 06/06/2021 6:01 AM Age: 20 years old Clinical indication: Cough and dyspnea and fever; Patient HX: Cough with dyspnea and fever. ; Additional info: Dyspnea/cough TECHNIQUE: Imaging protocol: XR of the chest. Views: 1 view. Total images: 1 COMPARISON: CR Chest 1 [place] [id number] 04/29/2019 6:14 PM FINDINGS: Lungs: Unremarkable. No consolidation. Pleural spaces: Unremarkable. No pleural effusion. No pneumothorax. Heart/Mediastinum: Unremarkable. No cardiomegaly. Bones/joints: Unremarkable. XR/XR chest 1V portable [id number] IMPRESSION: No acute findings.
[2021-06-06 06:16] VITALS: BP 124/88; PULSE 122; RESP 22; O2SAT 97
[2021-06-06] MEDS: acetaminophen 500 mg Tablet 1000 MG PO (06:30)
[2021-06-06 06:31] VITALS: BP 124/88; PULSE 119; RESP 22; O2SAT 97
[2021-06-07 18:28] LABS: Quest SARS-CoV-2 RNA DETECTED (NOT DETECTED)
== END 2021-06-06 06:30 | disposition home or self-care (01) ==
PROVIDERS: Emergency Provider Family Medicine; PCP Family Medicine
DX: U07.1 COVID-19 (principal)
CPT/HCPCS: 71045; 87635; 99283

== ENCOUNTER 2021-08-24 21:44 | Emergency (ER) | payer MEDICAID, SELFPAY ==
[2021-08-24 21:48] VITALS: BP 116/76; PULSE 104; RESP 22; TEMP 36.7; O2SAT 100; BMI 25.4
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
[2021-08-24] MEDS: LORazepam 2 mg/mL INJ 1 mL 1 MG IVP (21:53)
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
[2021-08-24 22:26] LABS: HCG Qualitative Urine. Negative (Negative)
[2021-08-24] MEDS: ondansetron 2 mg/ML SDV 2 mL 4 MG IVP (23:06)
[2021-08-24 23:11] VITALS: BP 105/69; PULSE 88; RESP 18; O2SAT 100
== END 2021-08-24 23:13 | disposition home or self-care (01) ==
PROVIDERS: Emergency Provider Emergency Medicine; PCP Family Medicine
DX: F41.1 Generalized anxiety disorder (principal); V89.2XXA Person injured in unspecified motor-vehicle accident, traffic, initial encounter
CPT/HCPCS: 71045; 81025; 96374; 96375; 99283; J2060; J2405